=== PATIENT | female | born 1935 | race Two or more races ===

== ENCOUNTER 2017-11-27 17:52 | Inpatient (IN) | payer OTHER ==
[~2017-11-27] VITALS: Ht 167.6 cm; Wt 72.6 kg
[~2017-11-27 17:52] MED LIST: DIGO0.2570; DILT180C62; METO-169; PANTPAK; SOTA80TA20
[2017-11-27] MEDS ORDERED: SODIUM CHLORIDE 0.9% 1,000 ML IV ONE (19:20)
[2017-11-27] MEDS ORDERED: POTA10TA51 PO (20:55)
[2017-11-27] MEDS ORDERED: NITR0.4S29 SL (20:55)
[2017-11-27] MEDS ORDERED: PANT1INJ3 PO (20:55)
[2017-11-27] MEDS ORDERED: APIX5TAB PO (20:55)
[2017-11-27] MEDS ORDERED: ACET250T3 PO (20:55)
[2017-11-27] MEDS ORDERED: AMIO200T33 PO (20:55)
[2017-11-27] MEDS ORDERED: METF-371 PO (20:55)
[2017-11-27] MEDS ORDERED: LEVO50TA7 PO (20:55)
[2017-11-27] MEDS ORDERED: MET50T PO (20:55)
[2017-11-27] MEDS ORDERED: TAMO20TA5 PO (20:55)
[2017-11-27] MEDS ORDERED: FURO80TA PO (20:55)
[2017-11-27 21:36] LABS: Basophils # (auto) 0 uL; Basophils % (auto) 0.5 % (0.0-2.0); Eosinophils # (auto) 0.1 uL; Eosinophils % (auto) 0.9 % (0.0-7.0); Hematocrit 39.7 % (36.0-46.0); Hemoglobin 12.4 g/dL (12.2-16.2); Lymphocytes # (auto) 1.4 uL; Lymphocytes % (auto) 12.8 % (10.0-50.0); Mean Corpuscular Hemoglobin 27.2 pg (28.0-32.0); Mean Corpuscular Hgb Conc. 31.1 g/dL (32.0-36.0); Mean Corpuscular Volume 87.3 fL (80.0-100.0); Monocytes # (auto) 0.3 uL; Neutrophils # (auto) 8.9 uL; Neutrophils % (auto) 82.8 % (37.0-80.0); Nucleated Red Blood Cells % 0.1 %; Platelet Count (auto) 130 10^3/uL (140-450); Red Blood Cells 4.55 10^6/uL (4.0-5.20); White Blood Cell 10.8 10^3/uL (4.4-10.8)
[2017-11-27 21:56] LABS: Alanine Aminotransferase 61 U/L (13-56); Albumin 2.8 g/dL (3.4-5.0); Anion Gap 19 (5-15); Aspartate Aminotransferase 75 U/L (15-37); BUN/Creatinine Ratio 31.4; Calcium 9.5 mg/dL (8.5-10.1); Carbon Dioxide 15 mmol/L (21-32); Chloride 96 mmol/L (98-107); GFR African American 15 mL/min; GFR Non-African American 13 mL/min; Glucose 72 mg/dL (74-106); Magnesium 1.9 mg/dL (1.6-2.6); Sodium 130 mmol/L (136-145)
[2017-11-27 21:59] LABS: Alkaline Phosphatase 38 U/L (45-117); Bilirubin, Total 0.4 mg/dL (0.2-1.0); Total Protein 7.5 g/dL (6.4-8.2)
[2017-11-27 22:13] LABS: Blood Urea Nitrogen 116 mg/dL (7-18)
[2017-11-27] MEDS ORDERED: ALBUTEROL SULF 2.5 MG/0.5ML(0.5%) NEB SOLN NEB STA (22:17)
[2017-11-27] MEDS ORDERED: SODIUM POLYSTYRENE SULF 15GM/60ML SUSP PO ONE (22:30)
[2017-11-27] MEDS ORDERED: SODIUM BICARBONATE 8.4% INJ 50ML SYRINGE IV ONE (22:30)
[2017-11-27] MEDS ORDERED: InsuLIN REG 1unit/0.01ml Soln (100units/ml) IV ONE (22:30)
[2017-11-27] MEDS ORDERED: CALCIUM GLUC 4.65meq/50ml D5AE 50 ML IV ONE (22:30)
[2017-11-27] MEDS ORDERED: DEXTROSE (50%) 50ML SYRG IV ONE (22:30)
[2017-11-28] MEDS ORDERED: SODIUM CHLORIDE 0.9% 1,000 ML IV SCH (00:23)
[2017-11-28] MEDS ORDERED: ONDANSETRON HCL 4 MG/2 ML VIAL IV PRN (00:30)
[2017-11-28] MEDS ORDERED: HYDROcodone-ACET 5/325MG TAB PO PRN (00:30)
[2017-11-28] MEDS ORDERED: AMIODARONE HCL 200 MG TAB PO ONE (00:30)
[2017-11-28] MEDS ORDERED: NITROGLYCERIN 0.4 MG SL TAB SL PRN (00:30)
[2017-11-28] MEDS ORDERED: ACETAMINOPHEN 325 MG TAB PO PRN (00:30)
[2017-11-28] MEDS ORDERED: DEXTROSE (50%) 50ML SYRG IV PRN ×2 (00:30→08:00)
[2017-11-28] MEDS ORDERED: METOPROLOL TARTRATE 50 MG TAB PO ONE (00:30)
[2017-11-28] MEDS ORDERED: MORPHINE SULFATE 10 MG/ML INJ 1ML SDV IV PRN (00:30)
[2017-11-28] MEDS ORDERED: TEMAZEPAM 15 MG CAP PO PRN (00:30)
[2017-11-28 00:57] LABS: INR 1.55 (0.9-1.15)
[2017-11-28 02:54] LABS: Albumin 2.9 g/dL (3.4-5.0); Calcium 9.6 mg/dL (8.5-10.1)
[2017-11-28 03:04] LABS: BUN/Creatinine Ratio 29.9; Bilirubin, Total 0.3 mg/dL (0.2-1.0); Total Protein 7.2 g/dL (6.4-8.2)
[2017-11-28 03:23] LABS: Potassium 6.1 mmol/L (3.5-5.1)
[2017-11-28] MEDS ORDERED: SODIUM CHLORIDE 0.9% 500 ML IV ONE (03:30)
[2017-11-28] MEDS ORDERED: SODIUM BICARBONATE 8.4 % INJ 50ML VIAL IV ONE ×2 (03:30→05:12)
[2017-11-28] MEDS ORDERED: InsuLIN REG 1unit/0.01ml Soln (100units/ml) IV ONE (03:30)
[2017-11-28] MEDS ORDERED: DEXTROSE (50%) 50ML SYRG IV ONE (03:30)
[2017-11-28] MEDS: CALCIUM GLUC 4.65meq/50ml D5AE 50 ML IV ONE ×2 (04:08→04:36)
[2017-11-28] MEDS ORDERED: FUROSEMIDE 40 MG TAB PO SCH (06:00)
[2017-11-28] MEDS ORDERED: SODIUM BICARBONATE 50ML VIAL 50 ML in SODIUM CHL 0.9% 1,000 ML IV ONE (06:00)
[2017-11-28] MEDS ORDERED: SODIUM BICARBONATE 50ML VIAL 50 ML in SODIUM CHLORIDE 0.9% 1,000 ML IV ONE (06:00)
[2017-11-28] MEDS ORDERED: ACCU-CHEK COMFORT CURVE STRIP VI SCH ×2 (06:00→12:00)
[2017-11-28] MEDS ORDERED: InsuLIN REG 1unit/0.01ml Soln (100units/ml) SC SCH ×2 (06:00→12:00)
[2017-11-28] MEDS: SODIUM POLYSTYRENE SULF 15GM/60ML SUSP PO ONE ×2 (06:48→06:52)
[2017-11-28] MEDS ORDERED: SODIUM POLYSTYRENE SULF 15GM/60ML SUSP PR ONE ×2 (07:00→07:45)
[2017-11-28] MEDS ORDERED: LEVOTHYROXINE SODIUM 25 MCG TAB PO SCH (07:00)
[2017-11-28 07:18] LABS: Urine Amorphous Crystal FEW /hpf (None Seen); Urine Bacteria FEW /hpf (None Seen); Urine Blood Negative /uL (Negative); Urine Hyaline Cast FEW /lpf (0 - 2); Urine Mucus FEW (None Seen); Urine Specific Gravity 1.015 (1.001-1.035); Urine WBC 9 /hpf (0 - 5)
[2017-11-28] MEDS ORDERED: METOPROLOL TARTRATE 25 MG TAB PO SCH (10:00)
[2017-11-28] MEDS ORDERED: HEPARIN SODIUM (PORCINE) 5000 UNITS/ML 1ML VIAL SC SCH (10:00)
[2017-11-28] MEDS ORDERED: AMIODARONE HCL 200 MG TAB PO SCH (10:00)
[2017-11-28] MEDS ORDERED: PANTOPRAZOLE 40 MG TAB PO SCH (10:00)
[2017-11-28] MEDS ORDERED: APIXABAN 5 MG TAB PO SCH (10:00)
[2017-11-28] MEDS ORDERED: METOPROLOL TARTRATE 50 MG TAB PO SCH (10:00)
[2017-11-28 12:37] VITALS: BP 100/50
== END 2017-11-28 13:04 | disposition short-term general hospital (02) | DRG 683 ==
LOC: EDBD 17:52 → ER 18:05 → OVERFLOW 18:06
PROVIDERS: ADMIT Nurse Practitioner; ATTEND Family Medicine
DX: N17.9 Acute kidney failure, unspecified (principal); E44.0 Moderate protein-calorie malnutrition; E87.5 Hyperkalemia; I48.91 Unspecified atrial fibrillation; I50.9 Heart failure, unspecified; E11.9 Type 2 diabetes mellitus without complications; G47.00 Insomnia, unspecified; I25.2 Old myocardial infarction; R00.1 Bradycardia, unspecified; Z79.899 Other long term (current) drug therapy
CPT/HCPCS: 36415; 36600; 51702; 71045; 80053; 80162; 81001; 82542; 82805; 82962; 83735; 84132; 84443; 84484; 85025; 85610; 93005; 93306; 94644; 96361; 96365; G0378; J0610; J2405

== ENCOUNTER 2020-05-23 10:17 | Inpatient (IN) | payer OTHER ==
[2020-05-23] VITALS (23 sets, daily range): BP systolic 87–129; BP diastolic 20–50
[~2020-05-23] VITALS: Ht 170.2 cm; Wt 111.3 kg
[~2020-05-23 10:17] MED LIST changes: +ACET250T3 PO; +AMIO200T33 PO; +APIX5TAB PO; -DIGO0.2570; -DILT180C62; +FURO1TAB32 PO; +LEVO50TA7 PO; +MET50T PO; +METF-371 PO; -METO-169; +NITR0.4S29 SL; +PANT1INJ3 PO; -PANTPAK; +POTA10TA51 PO; -SOTA80TA20; +TAMO20TA9 PO
[2020-05-23] MEDS ORDERED: NOREPINEPHRINE 8 MG/250ML KIT 250 ML IV ONE (10:26)
[2020-05-23] MEDS ORDERED: SODIUM BICARBONATE 8.4 % INJ 50ML VIAL IV ONE ×2 (10:27→10:45)
[2020-05-23] MEDS: NOREPINEPHRINE 8 MG/250ML KIT 250 ML IV SCH (10:30)
[2020-05-23] MEDS ORDERED: EPINEPHrine HCL INJECTION 4 MG in SODIUM CHL 0.9% 250 ML IV ONE (10:45)
[2020-05-23] MEDS ORDERED: AMIODARONE HCL 150 MG in D5W 5% 100 ML IV ONE ×2 (11:00→15:15)
[2020-05-23] MEDS ORDERED: MIDAZOLAM DRIP 50 mg/50mL 50 ML IV ONE (11:40)
[2020-05-23 11:41] LABS: Hemoglobin 10.2 g/dL (12.2-16.2); Mean Corpuscular Hemoglobin 28.9 pg (28.0-32.0); Mean Corpuscular Hgb Conc. 30.1 g/dL (32.0-36.0); Platelet Count (auto) 151 10^3/uL (140-450); Red Blood Cells 3.54 10^6/uL (4.0-5.20); Red Cell Distribution Width 15.5 % (11.8-14.3); White Blood Cell 9.9 10^3/uL (4.4-10.8)
[2020-05-23 11:45] LABS: Basophils % (manual) 0 (0.0-2.0); Blast Cells 0; Eosinophils % (manual) 0 (0-7); Myelocytes % 0; Promyelocytes % 0; Reactive Lymphocytes 0
[2020-05-23] MEDS: MIDAZOLAM DRIP 50 mg/50mL 50 ML IV SCH (11:50)
[2020-05-23 11:51] LABS: Lactic Acid w/Reflex 7.8 mmol/L (0.4-2.0)
[2020-05-23] MEDS ORDERED: FUROSEMIDE 20 MG/2 ML VIAL IV ONE ×3 (12:00→18:15)
[2020-05-23] MEDS ORDERED: DOXYCYCLINE 100MG/250ML 250 ML IV ONE (12:00)
[2020-05-23] MEDS ORDERED: MAGNESIUM SULFATE 1GM/100ML 100 ML IV ONE (12:00)
[2020-05-23] MEDS ORDERED: cefTRIAXone 1GM/50ML D5W 50 ML IV ONE (12:00)
[2020-05-23] MEDS ORDERED: DexAMETHasone SOD PHOS 10MG/1ML VIAL INJ IV ONE (12:00)
[2020-05-23 12:06] LABS: INR 1.35 (0.9-1.15); Partial Thromboplastin Time 27.1 sec (23.64-32.05)
[2020-05-23 12:10] LABS: Albumin 2.5 g/dL (3.4-5.0); BUN/Creatinine Ratio 23.4; Bilirubin, Total 0.4 mg/dL (0.2-1.0); Calcium 8.8 mg/dL (8.5-10.1); Total Protein 6.5 g/dL (6.4-8.2)
[2020-05-23 12:23] LABS: Band Neutrophils % (manual) 7; Lymphocytes % (manual) 26 (10.0-50.0); Metamyelocytes % 1; Monocytes % (manual) 5 (0-12)
[2020-05-23 12:42] LABS: CRP High Sensitivity 0.28 mg/dL (< 0.3)
[2020-05-23] MEDS ORDERED: MORPHINE SULF INJ 2 MG/ML SYRINGE 1ML IV PRN ×4 (12:45→16:30)
[2020-05-23] MEDS ORDERED: NITROGLYCERIN 0.4 MG SL TAB SL PRN ×2 (12:45→14:00)
[2020-05-23] MEDS: DOPamine 1600MCG/ML D5W 250 ML IV SCH (13:30)
[2020-05-23] MEDS ORDERED: VANCOMYCIN PER PHARMACY 1,000 MG IV SCH (14:00)
[2020-05-23] MEDS ORDERED: HYDROcodone-ACET 5/325MG TAB PO PRN (14:00)
[2020-05-23] MEDS ORDERED: ALUM & MAG HYDROX-SIMETH LIQ(MAALOX) 30 ML PO PRN (14:00)
[2020-05-23] MEDS ORDERED: LORazepam 0.5 MG TAB PO PRN (14:00)
[2020-05-23] MEDS ORDERED: LORazepam 2MG/ML-1ML VIAL IV PRN (14:00)
[2020-05-23] MEDS ORDERED: ONDANSETRON HCL 4 MG/2 ML VIAL IV PRN (14:00)
[2020-05-23] MEDS ORDERED: MORPHINE SULFATE 4 MG/ML SYR/VIAL IV PRN (14:00)
[2020-05-23] MEDS ORDERED: DOCUSATE SOD 100 MG CAP PO PRN (14:00)
[2020-05-23] MEDS ORDERED: ACETAMINOPHEN 325 MG TAB PO PRN ×2 (14:00)
[2020-05-23 14:29] LABS: Urine Bacteria FEW /hpf (None Seen); Urine Blood 1+ /uL (Negative); Urine Mucus FEW (None Seen); Urine Specific Gravity 1.017 (1.001-1.035); Urine WBC 174 /hpf (0 - 5); Urine WBC Clumps PRESENT /hpf (None Seen)
[2020-05-23] MEDS ORDERED: VANCOMYCIN 1GM/250ML 250 ML IV ONE (14:30)
[2020-05-23] MEDS: SODIUM CHLOR 0.9% PF (SALINE LOCK) 10ML VIAL/SYR IV SCH ×2 (14:43→21:06)
[2020-05-23 14:44] LABS: Alcohol, Urine < 3.0 mg/dL (0-10); Amphetamine Screen, Urine NEGATIVE (NEGATIVE); Barbiturate Scree,Urine NEGATIVE (NEGATIVE); Benzodiazephine Screen, Urine NEGATIVE (NEGATIVE); Cannabinoid Screen, Urine NEGATIVE (NEGATIVE); Cocaine Screen, Urine NEGATIVE (NEGATIVE); Opiate Scree,Urine NEGATIVE (NEGATIVE); Phencyclidine Screen, Urine NEGATIVE (NEGATIVE)
[2020-05-23] MEDS ORDERED: EPINEPHrine HCL 1 MG/10 ML SYRG IV ONE (14:57)
[2020-05-23] MEDS ORDERED: SODIUM BICARBONATE 8.4% INJ 50ML SYRINGE IV ONE (14:57)
[2020-05-23] MEDS ORDERED: CALCIUM CHLOR(10%) 100MG/ML 10ML SYRINGE IV ONE (14:57)
[2020-05-23] MEDS ORDERED: AMIODARONE HCL (50 MG/ ML) 3 ML VIAL IV ONE (14:57)
[2020-05-23] MEDS ORDERED: HEPARIN SODIUM (PORCINE) 5000 UNITS/ML 1ML VIAL IV ONE ×2 (15:15→16:15)
[2020-05-23] MEDS ORDERED: AMIODARONE 450mg/250ml AE 250 ML IV SCH ×2 (15:21→21:21)
[2020-05-23 15:56] LABS: Lymphocytes % (auto) 2.1 % (10.0-50.0); White Blood Cell 19.9 10^3/uL (4.4-10.8)
[2020-05-23 15:57] LABS: Basophils % (auto) 0.5 % (0.0-2.0); Eosinophils % (auto) 0.1 % (0.0-7.0); Lymphocytes # (auto) 0.4 10 ^3/uL (0.4-5.4); Monocytes % (auto) 7.3 % (0.0-12.0); Neutrophils # (auto) 17.9 10 ^3/uL (1.6-8.6)
[2020-05-23 15:58] LABS: Basophils # (auto) 0.1 10 ^3/uL (0-0.2); Eosinophils # (auto) 0 10 ^3/uL (0-0.8); Monocytes # (auto) 1.4 10 ^3/uL (0-1.3)
[2020-05-23 15:59] LABS: Hematocrit 36.4 % (36.0-46.0); Mean Corpuscular Hemoglobin 28.8 pg (28.0-32.0); Mean Corpuscular Hgb Conc. 30.2 g/dL (32.0-36.0); Mean Corpuscular Volume 95.1 fL (80.0-100.0); Red Blood Cells 3.83 10^6/uL (4.0-5.20)
[2020-05-23 15:59] LABS: INR 1.4 (0.9-1.15)
[2020-05-23 16:00] LABS: Platelet Count (auto) 172 10^3/uL (140-450); Red Cell Distribution Width 15.6 % (11.8-14.3)
[2020-05-23] MEDS ORDERED: APIX2.5T PO (16:07)
[2020-05-23] MEDS ORDERED: METO-169 PO (16:08)
[2020-05-23] MEDS ORDERED: FUR20T PO (16:09)
[2020-05-23] MEDS ORDERED: LEVO75TA6 PO (16:10)
[2020-05-23] MEDS ORDERED: PANT40T PO (16:10)
[2020-05-23] MEDS ORDERED: DILT-14 PO (16:14)
[2020-05-23] MEDS ORDERED: CHOL200021 PO (16:14)
[2020-05-23] MEDS ORDERED: B-CO-5 PO (16:14)
[2020-05-23] MEDS ORDERED: POTA10TA32 PO (16:15)
[2020-05-23] MEDS ORDERED: HYDR-4188 PO (16:16)
[2020-05-23] MEDS ORDERED: HEPARIN DRIP/D5W 100UNITS/ML 250 ML IV SCH (16:16)
[2020-05-23] MEDS ORDERED: GABA100C9 PO (16:17)
[2020-05-23] MEDS: HYDROCORTISONE SOD SUCC 100 MG/2ML INJ VIAL IV SCH (18:02)
[2020-05-23] MEDS: PIPERACILLIN-TAZOB 2.25GM 50 ML IV SCH (18:02)
[2020-05-23 19:47] LABS: Magnesium 2.7 mg/dL (1.6-2.6)
[2020-05-23] MEDS: FAMOTIDINE (10MG/ML) 2ML VL IV SCH (21:05)
[2020-05-23] MEDS: ENOXAPARIN SOD 100 MG/1 ML SYRINGE SC SCH (21:06)
[2020-05-24] VITALS (41 sets, daily range): BP systolic 101–124; BP diastolic 41–60
[2020-05-24] MEDS: HYDROCORTISONE SOD SUCC 100 MG/2ML INJ VIAL IV SCH ×4 (00:06→17:56)
[2020-05-24] MEDS: PIPERACILLIN-TAZOB 2.25GM 50 ML IV SCH ×4 (00:07→17:56)
[2020-05-24] MEDS: DOPamine 1600MCG/ML D5W 250 ML IV SCH ×2 (01:40→15:31)
[2020-05-24] MEDS: NOREPINEPHRINE 8 MG/250ML KIT 250 ML IV SCH (05:15)
[2020-05-24] MEDS: SODIUM CHLOR 0.9% PF (SALINE LOCK) 10ML VIAL/SYR IV SCH ×3 (05:42→22:00)
[2020-05-24] MEDS: FUROSEMIDE 20 MG/2 ML VIAL IV SCH ×2 (05:42→17:55)
[2020-05-24 08:36] LABS: Basophils # (auto) 0.1 10 ^3/uL (0-0.2); Basophils % (auto) 0.6 % (0.0-2.0); Eosinophils # (auto) 0 10 ^3/uL (0-0.8); Hemoglobin 11.1 g/dL (12.2-16.2); Lymphocytes # (auto) 0.9 10 ^3/uL (0.4-5.4); Lymphocytes % (auto) 6.5 % (10.0-50.0); Mean Corpuscular Hemoglobin 28.5 pg (28.0-32.0); Mean Corpuscular Hgb Conc. 31.7 g/dL (32.0-36.0); Mean Corpuscular Volume 90.1 fL (80.0-100.0); Monocytes # (auto) 0.5 10 ^3/uL (0-1.3); Monocytes % (auto) 3.7 % (0.0-12.0); Neutrophils # (auto) 12.1 10 ^3/uL (1.6-8.6); Neutrophils % (auto) 89.2 % (37.0-80.0); Nucleated Red Blood Cells % 0.3 %; Platelet Count (auto) 132 10^3/uL (140-450); Red Blood Cells 3.89 10^6/uL (4.0-5.20); Red Cell Distribution Width 14.9 % (11.8-14.3); White Blood Cell 13.6 10^3/uL (4.4-10.8)
[2020-05-24 08:53] LABS: Albumin 2.4 g/dL (3.4-5.0); Calcium 8.1 mg/dL (8.5-10.1)
[2020-05-24 09:00] LABS: BUN/Creatinine Ratio 24.6; Bilirubin, Total 0.5 mg/dL (0.2-1.0); Total Protein 6.4 g/dL (6.4-8.2)
[2020-05-24 09:07] LABS: Potassium 5.7 mmol/L (3.5-5.1)
[2020-05-24] MEDS ORDERED: ALBUTEROL SULF 2.5 MG/0.5ML(0.5%) NEB SOLN NEB ONE (09:15)
[2020-05-24] MEDS ORDERED: InsuLIN REG 1unit/0.01ml Soln (100units/ml) IV ONE (09:15)
[2020-05-24] MEDS ORDERED: SODIUM CHLORIDE 0.9% 3,000 ML IV ONE (09:15)
[2020-05-24] MEDS ORDERED: SODIUM BICARBONATE 8.4% INJ 50ML SYRINGE IV ONE (09:15)
[2020-05-24] MEDS ORDERED: SODIUM ZIRCONIUM CYCL 10 GM PAK GT ONE (09:15)
[2020-05-24] MEDS ORDERED: DEXTROSE (50%) 50ML SYRG IV ONE (09:15)
[2020-05-24] MEDS ORDERED: ENOXAPARIN SOD 40 MG/0.4 ML SYRINGE SC SCH (10:00)
[2020-05-24] MEDS ORDERED: VANCOMYCIN 1GM/250ML 250 ML IV ONE (10:30)
[2020-05-24] MEDS: FAMOTIDINE (10MG/ML) 2ML VL IV SCH ×2 (10:55→22:00)
[2020-05-24] MEDS ORDERED: BUMETANIDE 2.5mg/10ml (0.25 mg/ml) INJ IV ONE (11:15)
[2020-05-24] MEDS: MIDAZOLAM DRIP 50 mg/50mL 50 ML IV SCH (12:08)
[2020-05-24 14:00] LABS: Calcium 7.6 mg/dL (8.5-10.1); Potassium 4.8 mmol/L (3.5-5.1)
[2020-05-24 14:03] LABS: BUN/Creatinine Ratio 25.4
[2020-05-24] MEDS: ENOXAPARIN SOD 100 MG/1 ML SYRINGE SC SCH (22:00)
[2020-05-24] MEDS ORDERED: AMIO200T33 PO (23:38)
[2020-05-24] MEDS ORDERED: FURO20TA3 PO (23:38)
[2020-05-25] VITALS (101 sets, daily range): BP systolic 102–127; BP diastolic 39–54
[2020-05-25 04:03] LABS: Basophils # (auto) 0 10 ^3/uL (0-0.2); Basophils % (auto) 0.2 % (0.0-2.0); Eosinophils # (auto) 0 10 ^3/uL (0-0.8); Hematocrit 28.9 % (36.0-46.0); Hemoglobin 9.3 g/dL (12.2-16.2); Lymphocytes # (auto) 0.8 10 ^3/uL (0.4-5.4); Lymphocytes % (auto) 5.9 % (10.0-50.0); Mean Corpuscular Hemoglobin 28.8 pg (28.0-32.0); Mean Corpuscular Hgb Conc. 32.3 g/dL (32.0-36.0); Mean Corpuscular Volume 89.1 fL (80.0-100.0); Monocytes # (auto) 0.5 10 ^3/uL (0-1.3); Monocytes % (auto) 3.5 % (0.0-12.0); Neutrophils # (auto) 12.5 10 ^3/uL (1.6-8.6); Neutrophils % (auto) 90.4 % (37.0-80.0); Nucleated Red Blood Cells % 0.1 %; Platelet Count (auto) 128 10^3/uL (140-450); Red Blood Cells 3.24 10^6/uL (4.0-5.20); Red Cell Distribution Width 15.1 % (11.8-14.3); White Blood Cell 13.8 10^3/uL (4.4-10.8)
[2020-05-25 04:33] LABS: Albumin 2.4 g/dL (3.4-5.0); Calcium 7.4 mg/dL (8.5-10.1); Potassium 5.1 mmol/L (3.5-5.1)
[2020-05-25 04:41] LABS: BUN/Creatinine Ratio 24.4; Bilirubin, Total 0.5 mg/dL (0.2-1.0); CRP High Sensitivity 2.82 mg/dL (< 0.3); Total Protein 6.2 g/dL (6.4-8.2)
[2020-05-25] MEDS: DOPamine 1600MCG/ML D5W 250 ML IV SCH ×2 (04:53→18:15)
[2020-05-25] MEDS: HYDROCORTISONE SOD SUCC 100 MG/2ML INJ VIAL IV SCH ×4 (06:00→18:16)
[2020-05-25] MEDS: PIPERACILLIN-TAZOB 2.25GM 50 ML IV SCH ×4 (06:00→18:16)
[2020-05-25] MEDS: SODIUM CHLOR 0.9% PF (SALINE LOCK) 10ML VIAL/SYR IV SCH ×3 (06:00→22:00)
[2020-05-25] MEDS: FUROSEMIDE 20 MG/2 ML VIAL IV SCH ×2 (06:00→18:16)
[2020-05-25] MEDS: FAMOTIDINE (10MG/ML) 2ML VL IV SCH ×2 (10:00→22:00)
[2020-05-25] MEDS: NOREPINEPHRINE 8 MG/250ML KIT 250 ML IV SCH (10:37)
[2020-05-25] MEDS: MIDAZOLAM DRIP 50 mg/50mL 50 ML IV SCH (11:57)
[2020-05-25] MEDS: SODIUM CHLORIDE 0.9% 1,000 ML IV SCH (17:15)
[2020-05-25] MEDS ORDERED: DEXTROSE (50%) 50ML SYRG IV PRN (17:15)
[2020-05-25] MEDS: InsuLIN REG 1unit/0.01ml Soln (100units/ml) SC SCH (22:00)
[2020-05-25] MEDS: ACCU-CHEK COMFORT CURVE STRIP VI SCH (22:00)
[2020-05-26] VITALS (99 sets, daily range): BP systolic 100–142; BP diastolic 40–79
[2020-05-26] MEDS: SODIUM CHLORIDE 0.9% 1,000 ML IV SCH ×3 (03:00→16:36)
[2020-05-26 04:37] LABS: Basophils # (auto) 0 10 ^3/uL (0-0.2); Basophils % (auto) 0.3 % (0.0-2.0); Eosinophils # (auto) 0 10 ^3/uL (0-0.8); Eosinophils % (auto) 0.1 % (0.0-7.0); Hematocrit 26.8 % (36.0-46.0); Hemoglobin 8.5 g/dL (12.2-16.2); Lymphocytes # (auto) 0.6 10 ^3/uL (0.4-5.4); Lymphocytes % (auto) 5.6 % (10.0-50.0); Mean Corpuscular Hemoglobin 28.6 pg (28.0-32.0); Mean Corpuscular Hgb Conc. 31.6 g/dL (32.0-36.0); Mean Corpuscular Volume 90.4 fL (80.0-100.0); Monocytes # (auto) 0.3 10 ^3/uL (0-1.3); Monocytes % (auto) 2.8 % (0.0-12.0); Neutrophils # (auto) 10.3 10 ^3/uL (1.6-8.6); Neutrophils % (auto) 91.2 % (37.0-80.0); Platelet Count (auto) 115 10^3/uL (140-450); Red Blood Cells 2.97 10^6/uL (4.0-5.20); Red Cell Distribution Width 15.4 % (11.8-14.3); White Blood Cell 11.2 10^3/uL (4.4-10.8)
[2020-05-26 05:04] LABS: INR 1.29 (0.9-1.15); Partial Thromboplastin Time 34.2 sec (23.64-32.05)
[2020-05-26 05:12] LABS: Albumin 2.2 g/dL (3.4-5.0); BUN/Creatinine Ratio 22.4; Potassium 5.2 mmol/L (3.5-5.1)
[2020-05-26 05:15] LABS: Bilirubin, Total 0.5 mg/dL (0.2-1.0); Total Protein 5.9 g/dL (6.4-8.2)
[2020-05-26] MEDS: PIPERACILLIN-TAZOB 2.25GM 50 ML IV SCH ×4 (06:00→17:09)
[2020-05-26] MEDS: SODIUM CHLOR 0.9% PF (SALINE LOCK) 10ML VIAL/SYR IV SCH ×3 (06:00→22:00)
[2020-05-26] MEDS: FUROSEMIDE 20 MG/2 ML VIAL IV SCH (06:00)
[2020-05-26] MEDS: HYDROCORTISONE SOD SUCC 100 MG/2ML INJ VIAL IV SCH ×4 (06:00→17:09)
[2020-05-26] MEDS: InsuLIN REG 1unit/0.01ml Soln (100units/ml) SC SCH ×4 (06:49→22:00)
[2020-05-26] MEDS: ACCU-CHEK COMFORT CURVE STRIP VI SCH ×4 (06:50→22:00)
[2020-05-26 07:20] LABS: Protein, Urine 34.7 mg/dL (0.0-11.9)
[2020-05-26] MEDS: DOPamine 1600MCG/ML D5W 250 ML IV SCH (07:37)
[2020-05-26] MEDS: BUMETANIDE INJECTION 12.5 MG in GIVE UN-DILUTED 0 ML IV SCH ×2 (09:00→23:00)
[2020-05-26] MEDS: FAMOTIDINE (10MG/ML) 2ML VL IV SCH ×2 (10:04→22:00)
[2020-05-26] MEDS: NOREPINEPHRINE 8 MG/250ML KIT 250 ML IV SCH (10:28)
[2020-05-26] MEDS: MIDAZOLAM DRIP 50 mg/50mL 50 ML IV SCH (12:08)
[2020-05-26] MEDS ORDERED: VANCOMYCIN 500 MG in D5W 5% 100 ML IV ONE (17:00)
[2020-05-27] VITALS (91 sets, daily range): BP systolic 116–143; BP diastolic 49–65
[2020-05-27 05:34] LABS: Basophils # (auto) 0 10 ^3/uL (0-0.2); Basophils % (auto) 0.1 % (0.0-2.0); Eosinophils # (auto) 0 10 ^3/uL (0-0.8); Hemoglobin 8.5 g/dL (12.2-16.2); Lymphocytes # (auto) 0.5 10 ^3/uL (0.4-5.4); Lymphocytes % (auto) 5.2 % (10.0-50.0); Mean Corpuscular Hemoglobin 29.2 pg (28.0-32.0); Mean Corpuscular Hgb Conc. 32.6 g/dL (32.0-36.0); Mean Corpuscular Volume 89.5 fL (80.0-100.0); Monocytes # (auto) 0.4 10 ^3/uL (0-1.3); Monocytes % (auto) 3.9 % (0.0-12.0); Neutrophils # (auto) 8.8 10 ^3/uL (1.6-8.6); Neutrophils % (auto) 90.8 % (37.0-80.0); Nucleated Red Blood Cells % 0.1 %; Platelet Count (auto) 90 10^3/uL (140-450); Red Blood Cells 2.91 10^6/uL (4.0-5.20); Red Cell Distribution Width 14.9 % (11.8-14.3); White Blood Cell 9.7 10^3/uL (4.4-10.8)
[2020-05-27] MEDS: ACCU-CHEK COMFORT CURVE STRIP VI SCH ×4 (06:00→22:07)
[2020-05-27] MEDS: SODIUM CHLOR 0.9% PF (SALINE LOCK) 10ML VIAL/SYR IV SCH ×3 (06:00→22:07)
[2020-05-27] MEDS: PIPERACILLIN-TAZOB 2.25GM 50 ML IV SCH ×4 (06:00→17:31)
[2020-05-27] MEDS: HYDROCORTISONE SOD SUCC 100 MG/2ML INJ VIAL IV SCH ×4 (06:00→17:31)
[2020-05-27] MEDS: InsuLIN REG 1unit/0.01ml Soln (100units/ml) SC SCH ×4 (06:36→22:00)
[2020-05-27 06:50] LABS: BUN/Creatinine Ratio 23.4; Calcium 6.7 mg/dL (8.5-10.1); Potassium 4.9 mmol/L (3.5-5.1)
[2020-05-27] MEDS: SODIUM CHLORIDE 0.9% 1,000 ML IV SCH ×2 (09:15→15:28)
[2020-05-27] MEDS: FAMOTIDINE (10MG/ML) 2ML VL IV SCH ×2 (10:10→22:07)
[2020-05-27] MEDS: DOPamine 1600MCG/ML D5W 250 ML IV SCH (10:21)
[2020-05-27] MEDS: NOREPINEPHRINE 8 MG/250ML KIT 250 ML IV SCH (10:37)
[2020-05-27] MEDS: MIDAZOLAM DRIP 50 mg/50mL 50 ML IV SCH (12:08)
[2020-05-27] MEDS: BUMETANIDE INJECTION 12.5 MG in GIVE UN-DILUTED 0 ML IV SCH (17:32)
[2020-05-28] VITALS (101 sets, daily range): BP systolic 110–150; BP diastolic 40–79
[2020-05-28 05:16] LABS: Basophils # (auto) 0 10 ^3/uL (0-0.2); Eosinophils # (auto) 0 10 ^3/uL (0-0.8); Hemoglobin 7.8 g/dL (12.2-16.2); Mean Corpuscular Hgb Conc. 31.4 g/dL (32.0-36.0); Monocytes # (auto) 0.4 10 ^3/uL (0-1.3); Red Blood Cells 2.77 10^6/uL (4.0-5.20)
[2020-05-28 05:21] LABS: Basophils % (auto) 0.1 % (0.0-2.0); Lymphocytes # (auto) 0.4 10 ^3/uL (0.4-5.4); Lymphocytes % (auto) 3.6 % (10.0-50.0); Mean Corpuscular Hemoglobin 28.3 pg (28.0-32.0); Monocytes % (auto) 3.2 % (0.0-12.0); Neutrophils # (auto) 11.2 10 ^3/uL (1.6-8.6); Neutrophils % (auto) 93.1 % (37.0-80.0); Platelet Count (auto) 99 10^3/uL (140-450); Red Cell Distribution Width 14.4 % (11.8-14.3); White Blood Cell 12.1 10^3/uL (4.4-10.8)
[2020-05-28 05:41] LABS: Potassium 4.7 mmol/L (3.5-5.1)
[2020-05-28 05:47] LABS: BUN/Creatinine Ratio 23.3; Calcium 6.6 mg/dL (8.5-10.1)
[2020-05-28] MEDS: HYDROCORTISONE SOD SUCC 100 MG/2ML INJ VIAL IV SCH ×4 (06:00→17:53)
[2020-05-28] MEDS: SODIUM CHLOR 0.9% PF (SALINE LOCK) 10ML VIAL/SYR IV SCH ×3 (06:00→22:29)
[2020-05-28] MEDS: PIPERACILLIN-TAZOB 2.25GM 50 ML IV SCH ×4 (06:00→17:53)
[2020-05-28] MEDS: ACCU-CHEK COMFORT CURVE STRIP VI SCH ×4 (06:40→22:29)
[2020-05-28] MEDS: InsuLIN REG 1unit/0.01ml Soln (100units/ml) SC SCH ×4 (06:40→22:00)
[2020-05-28] MEDS: FAMOTIDINE (10MG/ML) 2ML VL IV SCH ×2 (10:02→22:29)
[2020-05-28] MEDS: NOREPINEPHRINE 8 MG/250ML KIT 250 ML IV SCH (10:37)
[2020-05-28] MEDS: MIDAZOLAM DRIP 50 mg/50mL 50 ML IV SCH (12:08)
[2020-05-28] MEDS: SODIUM CHLORIDE 0.9% 1,000 ML IV SCH ×2 (14:11→15:15)
[2020-05-28] MEDS: FUROSEMIDE INJECTION 100 MG in D5W 5% 100 ML IV SCH (17:52)
[2020-05-29] VITALS (73 sets, daily range): BP systolic 111–140; BP diastolic 43–61
[2020-05-29] MEDS: SODIUM CHLORIDE 0.9% 1,000 ML IV SCH ×2 (01:15→11:15)
[2020-05-29] MEDS: FUROSEMIDE INJECTION 100 MG in D5W 5% 100 ML IV SCH ×2 (05:09→12:15)
[2020-05-29] MEDS: HYDROCORTISONE SOD SUCC 100 MG/2ML INJ VIAL IV SCH ×3 (06:02→11:38)
[2020-05-29] MEDS: PIPERACILLIN-TAZOB 2.25GM 50 ML IV SCH ×3 (06:02→11:38)
[2020-05-29] MEDS: SODIUM CHLOR 0.9% PF (SALINE LOCK) 10ML VIAL/SYR IV SCH ×2 (06:02→13:31)
[2020-05-29] MEDS: InsuLIN REG 1unit/0.01ml Soln (100units/ml) SC SCH ×2 (06:03→11:27)
[2020-05-29] MEDS: ACCU-CHEK COMFORT CURVE STRIP VI SCH ×2 (06:03→11:27)
[2020-05-29] MEDS: MIDAZOLAM DRIP 50 mg/50mL 50 ML IV SCH ×2 (06:50→12:08)
[2020-05-29 07:22] LABS: Red Blood Cells 2.45 10^6/uL (4.0-5.20)
[2020-05-29 07:24] LABS: Hemoglobin 7.1 g/dL (12.2-16.2); Mean Corpuscular Hemoglobin 28.9 pg (28.0-32.0); Mean Corpuscular Hgb Conc. 32.2 g/dL (32.0-36.0); Mean Corpuscular Volume 89.9 fL (80.0-100.0); Platelet Count (auto) 85 10^3/uL (140-450); Red Cell Distribution Width 14.8 % (11.8-14.3); White Blood Cell 11.3 10^3/uL (4.4-10.8)
[2020-05-29 07:33] LABS: Band Neutrophils % (manual) 0; Basophils % (manual) 0 (0.0-2.0); Blast Cells 0; Eosinophils % (manual) 0 (0-7); Metamyelocytes % 0; Myelocytes % 0; Promyelocytes % 0; Reactive Lymphocytes 0
[2020-05-29 07:36] LABS: BUN/Creatinine Ratio 21.6; Calcium 6.5 mg/dL (8.5-10.1); Potassium 4.4 mmol/L (3.5-5.1)
[2020-05-29 07:58] LABS: Lymphocytes % (manual) 5 (10.0-50.0); Monocytes % (manual) 1 (0-12)
[2020-05-29] MEDS: NOREPINEPHRINE 8 MG/250ML KIT 250 ML IV SCH (10:37)
[2020-05-29] MEDS ORDERED: MORPHINE SULFATE 4 MG/ML SYR/VIAL IV ONE (16:15)
[2020-05-29] MEDS ORDERED: LORazepam 2MG/ML-1ML VIAL IV PRN (16:15)
[2020-05-29] MEDS ORDERED: MORPHINE SULF INJ 2 MG/ML SYRINGE 1ML IV PRN (18:00)
[2020-05-30] MEDS ORDERED: AMIODARONE HCL (50 MG/ ML) 3 ML VIAL IV ONE (01:00)
[2020-05-30] MEDS ORDERED: AMIODARONE 450mg/250ml AE 250 ML IV ONE (01:00)
[2020-05-30] MEDS ORDERED: FAMOTIDINE (10MG/ML) 2ML VL IV SCH (10:00)
== END 2020-05-29 22:10 | disposition expired | DRG 870 ==
LOC: EDBD 10:17 → ER 10:17 → OVERFLOW 10:18 → ICU WEST 05-24 20:40
PROVIDERS: ADMIT Hospitalist; ATTEND Hospitalist
PROC: 5A1935Z Respiratory Ventilation, Less than 24 Consecutive Hours (ICD-10-PCS; principal; 2020-05-23)
PROC: 0BH17EZ Insertion of Endotracheal Airway into Trachea, Via Natural or Artificial Opening (ICD-10-PCS; 2020-05-23)
PROC: 02HV33Z Insertion of Infusion Device into Superior Vena Cava, Percutaneous Approach (ICD-10-PCS; 2020-05-23)
PROC: 5A12012 Performance of Cardiac Output, Single, Manual (ICD-10-PCS; 2020-05-23)
PROC: 5A1955Z Respiratory Ventilation, Greater than 96 Consecutive Hours (ICD-10-PCS; 2020-05-23)
DX: A41.89 Other specified sepsis (principal); J96.21 Acute and chronic respiratory failure with hypoxia; U07.1 COVID-19; N17.0 Acute kidney failure with tubular necrosis; E43 Unspecified severe protein-calorie malnutrition; I50.33 Acute on chronic diastolic (congestive) heart failure; N18.6 End stage renal disease; G93.41 Metabolic encephalopathy; G93.6 Cerebral edema; I21.A1 Myocardial infarction type 2; J12.89 Other viral pneumonia; R65.21 Severe sepsis with septic shock; N39.0 Urinary tract infection, site not specified; G93.1 Anoxic brain damage, not elsewhere classified; I13.2 Hypertensive heart and chronic kidney disease with heart failure and with stage 5 chronic kidney disease, or end stage renal disease; I46.9 Cardiac arrest, cause unspecified; I48.91 Unspecified atrial fibrillation; E11.65 Type 2 diabetes mellitus with hyperglycemia; R00.1 Bradycardia, unspecified; D64.9 Anemia, unspecified; E11.22 Type 2 diabetes mellitus with diabetic chronic kidney disease; E66.01 Morbid (severe) obesity due to excess calories; E78.5 Hyperlipidemia, unspecified; E87.5 Hyperkalemia; K59.04 Chronic idiopathic constipation; N28.1 Cyst of kidney, acquired; Z79.01 Long term (current) use of anticoagulants; I25.2 Old myocardial infarction; Z68.38 Body mass index [BMI] 38.0-38.9, adult; Z86.73 Personal history of transient ischemic attack (TIA), and cerebral infarction without residual deficits
CPT/HCPCS: 36415; 36556; 36600; 70450; 71045; 71250; 76775; 80048; 80053; 80061; 80202; 80307; 81001; 82553; 82570; 82728; 82805; 82962; 83036; 83605; 83615; 83735; 83880; 84156; 84300; 84443; 84484; 85007; 85025; 85027; 85379; 85610; 85730; 86141; 86850; 86900; 86901; 87040; 87070; 87077; 87081; 87086; 87186; 87205; 87804; 87880; 92950; 93005; 93306; 93970; 94002; 94003; 96365; 96367; 99291; G0378; J0171; J0696; J1100; J1815; J2250; J2543; J3490; J7060